=== PATIENT | female | born 1965 | race Caucasian/White ===

== ENCOUNTER 2021-09-12 08:35 | Outpatient (CLI) | payer BC ==
[2021-09-12] MEDS ORDERED: Iopamidol 300 61% 100 ML VIAL FS ONE (14:57)
== END 2021-09-12 08:36 | disposition home or self-care (01) ==
LOC: CSHCT 08:35
PROVIDERS: ATTEND Internal Medicine Cardiovascular Disease
DX: I63.032 Cerebral infarction due to thrombosis of left carotid artery (principal); I63.233 Cerebral infarction due to unspecified occlusion or stenosis of bilateral carotid arteries
CPT/HCPCS: 70498; Q9967

== ENCOUNTER 2022-03-24 14:30 | Outpatient (CLI) | payer BC | END 2022-03-24 14:31 | disposition home or self-care (01) | LOC: CSHMAMMO 14:30 | PROVIDERS: ATTEND Obstetrics & Gynecology Gynecology | DX: Z12.31 Encounter for screening mammogram for malignant neoplasm of breast (principal); Z98.82 Breast implant status | CPT/HCPCS: 77063; 77067 ==

== ENCOUNTER 2023-03-25 10:18 | Outpatient (CLI) | payer BC | END 2023-03-25 10:19 | disposition home or self-care (01) | LOC: CSHMAMMO 10:18 | PROVIDERS: ATTEND Obstetrics & Gynecology Gynecology | DX: Z12.31 Encounter for screening mammogram for malignant neoplasm of breast (principal); Z98.82 Breast implant status | CPT/HCPCS: 77063; 77067 ==

== ENCOUNTER 2024-03-28 10:13 | Outpatient (CLI) | payer BC | END 2024-03-28 10:14 | disposition home or self-care (01) | LOC: CSHMAMMO 10:13 | PROVIDERS: ATTEND Family Medicine | DX: Z12.31 Encounter for screening mammogram for malignant neoplasm of breast (principal); Z98.82 Breast implant status | CPT/HCPCS: 77063; 77067 ==

== ENCOUNTER 2025-01-09 08:27 | Outpatient (CLI) | payer BC ==
[2025-01-09] MEDS ORDERED: Iopamidol 370 76% 100 ML VIAL ONE (10:36)
== END 2025-01-09 08:28 | disposition home or self-care (01) ==
LOC: CSHCT 08:27
PROVIDERS: ATTEND Internal Medicine Cardiovascular Disease
DX: I65.23 Occlusion and stenosis of bilateral carotid arteries (principal)
CPT/HCPCS: 70498; Q9967

== ENCOUNTER 2025-03-29 09:58 | Outpatient (CLI) | payer BC | END 2025-03-29 09:59 | disposition home or self-care (01) | LOC: CSHMAMMO 09:58 | PROVIDERS: ATTEND Family Medicine | DX: Z12.31 Encounter for screening mammogram for malignant neoplasm of breast (principal); Z98.82 Breast implant status | CPT/HCPCS: 77063; 77067 ==